=== PATIENT | female | born 1935 | race Caucasian/White ===

== ENCOUNTER 2017-10-27 08:30 | Inpatient (IN) | payer OTHER ==
[~2017-10-27] VITALS: Ht 157.5 cm; Wt 102.1 kg
--- NOTE | 2017-10-27 08:35 | NUR ---
AAOX3, BIBRA FROM HOME C/O SON UNABLE TO TAKE CARE OF THE PATIENT ANYMORE. RR IS EVEN AND UNLABORED WITH NAD NOTED. SKIN IS WARM AND DRY. ASSISTED TO HOSPITAL GOWN. PLACED ON THE MONITOR. DR TONY AT FOR EVAL.
[2017-10-27 09:18] LABS: CALCIUM, SERUM 8.9 mg/dL (8.5-10.1); CARBON DIOXIDE 29 mmol/L (21-32); CHLORIDE 102 mmol/L (98-107); CREATININE 1.5 mg/dL (0.6-1.3); GLUCOSE 138 mg/dL (74-106); POTASSIUM 3.3 mmol/L (3.5-5.1); SODIUM SERUM 139 mmol/L (136-145); UREA NITROGEN, BLOOD 8 mg/dL (7-18)
[2017-10-27 09:23] LABS: BASOPHILS % (AUTO) 0.6 % (0.0-2.0); EOSINOPHILS # (AUTO) 0.1 /CMM (0.0-0.7); EOSINOPHILS % (AUTO) 1.8 % (0.0-6.0); HEMATOCRIT 32 % (33-45); HEMOGLOBIN 10.6 g/dL (11.5-14.8); MEAN CORPUSCULAR HEMOGLOBIN 29 PG (26.0-33.0); MEAN CORPUSCULAR HGB CONC 33 g/dl (31.0-36.0); MEAN CORPUSCULAR VOLUME 89 fL (82-100); MONOCYTES # (AUTO) 0.6 /CMM (0.1-1.30); MONOCYTES % (AUTO) 9.6 % (2.0-12.0); NEUTROPHILS # (AUTO) 2.5 /CMM (1.8-8.9); PLATELET COUNT (AUTO) 130 /CMM (150-450); RDW COEFFICIENT OF VARIATION 27.5 (11.5-15.0); RED BLOOD CELL COUNT(AUTO) 3.63 MIL/uL (4.0-5.2); WHITE BLOOD COUNT (AUTO) 6.2 K/uL (4.3-11.0)
[2017-10-27 09:24] LABS: ALANINE AMINOTRANSFERASE 32 U/L (12-78); ALBUMIN 2.5 g/dL (3.4-5.0); ALKALINE PHOSPHATASE 55 U/L (46-116); ASPARTATE AMINOTRANSFERASE 56 U/L (15-37); BILIRUBIN,DIRECT 0.3 mg/dL (0.0-0.2); BILIRUBIN,TOTAL 1.2 mg/dL (0.2-1.0)
[2017-10-27 09:27] LABS: INR 1.39 (0.87-1.13)
[2017-10-27 09:29] LABS: TROPONIN I 0.017 ng/mL (0.00-0.056)
[2017-10-27 09:30] LABS: THYROID STIMULATING HORMONE 74.879 uIU/mL (0.358-3.74)
[2017-10-27 10:05] LABS: APPEARANCE,URINE Clear (CLEAR); BILIRUBIN,URINE Negative (NEGATIVE); BLOOD, URINE Negative Ery/uL (NEGATIVE); COLOR,URINE Yellow (YELLOW); KETONES,URINE Negative (NEGATIVE); LEUKOCYTE ESTERASE ,URINE Negative (NEGATIVE); NITRITE, URINE Negative (NEGATIVE); PROTEIN,URINE 30 mg/dl (NEGATIVE); UGLUCOSE Negative (NEGATIVE); UROBILINOGEN,URINE 0.2 EU/dL (0.2)
--- NOTE | 2017-10-27 10:11 | NUR ---
OVERHEAD PAGED SUSANNAH ALSO CALLED
[2017-10-27 10:25] LABS: BACTERIA,URINE None seen /HPF (None Seen); RBC,URINE 0-2 /HPF (0-2); SQUAMOUS EPITHELIAL CELL,UR Few /HPF (None Seen); WBC,URINE 0-3 /HPF (0-3)
--- NOTE | 2017-10-27 10:25 | NUR ---
TURNED IN MOVE SHEET
[2017-10-27] MEDS ORDERED: AMLO2.5T PO (10:48)
[2017-10-27] MEDS ORDERED: TRAZ-144 PO (10:48)
[2017-10-27] MEDS ORDERED: LEVO75TA7 PO (10:48)
[2017-10-27] MEDS ORDERED: GABA-534 PO (10:48)
[2017-10-27] MEDS ORDERED: IRBE1TAB41 PO (10:49)
[2017-10-27] MEDS ORDERED: HYDR-3972 PO (10:50)
--- NOTE | 2017-10-27 11:48 | NUR ---
PATIENT WAS TRASNFERRED TO TELE, VSS
[2017-10-27 12:00] VITALS: BP 142/78
--- NOTE | 2017-10-27 12:30 | NUR ---
M/S RN - Admission Patient under med-surg observation status for Weakness; Hypothyroidism, alert and oriented, denies pain, no apparent distress seen. Skin assessment done, intact, refused photo to be taken. Patient independent with bed mobility. All belongings accounted. Patient oriented to room and use of call light. Fall and aspiration precautions initiated. Will continue to monitor closely.
[2017-10-27 16:00] VITALS: BP 130/83
[2017-10-27] MEDS ORDERED: HYDROCODONE/APAP 5/325MG 1 EACH TABLET PO PRN (17:30)
[2017-10-27] MEDS ORDERED: FAMOTIDINE (20 MG) 20 MG TABLET PO SCH (17:30)
[2017-10-27] MEDS ORDERED: LEVOTHYROXINE SODIUM 75 MCG TABLET PO SCH (17:30)
--- NOTE | 2017-10-27 18:35 | NUR ---
M/S RN - Notes Patient alert and oriented throughout the shift, denies pain, not in any form of distress. Patient to be discharged to [facility] Barbara Booth [phone] patricia. Patient's skin is intact, refused photo to be taken. All discharge papers done. Raymond Boo [phone] aware of discharge. Ambulance ETA 20:00-20:30. Will endorse to night RN for completion of discharge.
--- NOTE | 2017-10-27 19:15 | NUR ---
RN NOTES RECEIVED PT AWAKE, ALERT AND ORIENTED X2, ON ROOM AIR AND TOLERATED WELL. PT DENIES PAIN, NAUSEA AND VOMITING. PT MADE AWARE SHE WILL BE DISCHARGE TO [facility] AND SON JOSEPH GRISSOM AWARE TOO. AWAITING FOR TRANSPORTATION FOR [employer]RA[employer]URE [employer]INE[employer]. KEPT COMFORTABLE AND ATTENDED. FALL PRECAUTION OBSERVED. WILL CONTINUE TO MONITOR PT.
--- NOTE | 2017-10-27 19:25 | NUR ---
RN NOTES CALLED [facility], REPORT GIVEN TO SATNAM NEWTON.
[2017-10-27 20:00] VITALS: BP 116/67
--- NOTE | 2017-10-27 20:15 | NUR ---
RN NOTES DISCHARGE INSTRUCTIONS AND LIST OF MEDICATIONS DISCUSSED WITH THE PT AND VERBALIZED UNDERSTANDING. BELONGINGS CHECKED, PT IS WEARING 2 SHIRTS AND WEARING HER UPPER AND LOWER DENTURES, BELONGING LIST SIGNED BY THE PT, WITH HOME MEDS AT BEDSIDE WILL SEND WITH THE PT. PT REFUSED FOR THE BODY ASSESSMENT AND PICTURES TO BE TAKEN.
--- NOTE | 2017-10-27 21:30 | NUR ---
RN NOTES [facility] CAME TO REGISTRAR NURSES' REGISTRY THE PT. REPORT GIVEN, VITAL SIGNS STABLE BP 116/67, HR 66, RR 19, TEMP 98.1, O2SAT 95% AT RA, BS 191MG/DL. PT DENIES ANY PAIN AND DISCOMFORT. ID BAND AND IV ACCESS REMOVED , PRESSURE DRESSING APPLIED. DISCHARGED PT IN STABLE CONDITION.
[2017-10-27] MEDS ORDERED: TRAZODONE 50 MG TABLET PO SCH (22:00)
[2017-10-28] MEDS ORDERED: LEVOTHYROXINE SODIUM 75 MCG TABLET PO SCH (07:30)
[2017-10-28] MEDS ORDERED: Medication Not On Formulary EA (Irbesartan/Hydrochlorothiazide (Avalide 150-12.5 Mg Tabl PO SCH (09:00)
[2017-10-28] MEDS ORDERED: AMLODIPINE BESYLATE 2.5 MG TABLET PO SCH (09:00)
[2017-10-28] MEDS ORDERED: GABAPENTIN 300 MG CAPSULE PO SCH (09:00)
== END 2017-10-27 20:30 | DRG 645 ==
LOC: ER 08:31 → MED 11:25
PROVIDERS: ADMIT Internal Medicine; ATTEND Internal Medicine
DX: E03.9 Hypothyroidism, unspecified (principal); E88.09 Other disorders of plasma-protein metabolism, not elsewhere classified; E11.9 Type 2 diabetes mellitus without complications; E78.5 Hyperlipidemia, unspecified; I10 Essential (primary) hypertension; R82.99 Other abnormal findings in urine
CPT/HCPCS: 36415; 71045-TC; 80048-TC; 80076-TC; 81000-TC; 82962-TC; 84443-TC; 84484-TC; 85025-TC; 85730-TC; 87081-TC; A4606; Z7610